=== PATIENT | female | born 1975 | race African-American/Black ===

== ENCOUNTER 2016-12-31 23:26 | Observation (INO) | payer BC, OTHER ==
[~2016-12-31] VITALS: Ht 175.3 cm; Wt 121.0 kg
[~2016-12-31 23:26] MED LIST: ASPI81CH3; BACT800T5 PO
[2016-12-31 23:30] VITALS: BP 148/71; RESP 16; TEMP 97.7; O2SAT 100
[2017-01-01 00:05] VITALS: BP 143/76; PULSE 76; RESP 16; TEMP 98.5; O2SAT 99
[2017-01-01 00:09] VITALS: BP 143/76; PULSE 72; RESP 16; O2SAT 99
[2017-01-01] MEDS ORDERED: SODIUM CHLORID 0.9% 500 ML INJ 500 ML IV ONE (00:15)
[2017-01-01] MEDS ORDERED: SODIUM CHLORIDE 0.9% FLUSH 5 ML FLUSH IVF PRN ×2 (00:15→02:15)
[2017-01-01] MEDS ORDERED: NITROGLYCERIN 0.4 MG SL 25 TABS/BTL SL ONE (00:15)
[2017-01-01] MEDS ORDERED: ASPIRIN 81 MG CHEW TAB PO ONE (00:15)
[2017-01-01 00:44] VITALS: BP 142/76; PULSE 72; RESP 16; O2SAT 99
--- NOTE | 2017-01-01 00:49 | PD ---
HPI Chief Complaint: Chest Pain Time Seen by Provider: 23:59 Travel History International Travel<30 days: No Contact w/Intl Traveler<30days: No Traveled to known affect area: No History of Present Illness HPI The patient is a 41 year old female who presents to the [facility] emergency department with a history of chest pain that began approximately 2-1/ 2 hours prior to arrival. The patient reports that she was waking up to go to work and noticed that she did not feel well and was nauseated. She then proceeded to have a chest pressure in the center and right side of her chest associated with shortness of breath and a sensation that she was wheezing. She denies any prior history of lung disease. She denies any history of smoking. She reports that she had diaphoresis associated with it. She denies having any vomiting. She denies having any radiation of pain. She denies any prior history of heart disease, hyperlipidemia, hypertension, or diabetes mellitus. She denies any significant family history of heart disease. The patient denies any recent fevers, cough, congestion, neck pain, abdominal pain, vomiting, diarrhea, urinary symptoms, or neurologic symptoms. [facility] Past Medical History Narrative Medical The patient's past medical history is significant for dysmenorrhea, status post endometrial ablation. Blood Disorders: No Cancer: No Cardiovascular Problems: No Diminished Hearing: No Gastrointestinal Disorders: No Tetanus Vaccination: < 5 Years ?: Not LMP: ABLATION : 3 Para: 3 Tubal Ligation: Yes (2010) Past Surgical History Narrative Surgical The patient's past surgical history is significant for 3 prior C-sections. Section: Yes Gynecologic Surgery: Yes ( x 3) Social History Alcohol Use: No Tobacco Use: No Substance Use: No Allergies-Medications (Allergen,Severity, Reaction): Coded Allergies: Vancomycin (Verified Allergy, Severe, Rash, 12/31/16) Reported Meds & Prescriptions Reported Meds & Active Scripts Active No Active Prescriptions or Reported Medications Review of Systems Except as stated in HPI: all other systems reviewed are Neg General / Constitutional: No: Fever Eyes: No: Visual changes HENT: No: Headaches Cardiovascular: Positive: Chest Pain or Discomfort, Diaphoresis, Dyspnea on exertion Respiratory: Positive: Shortness of Breath Gastrointestinal: Positive: Nausea, No: Abdominal Pain Genitourinary: No: Dysuria Musculoskeletal: No: Pain Skin: No Rash Neurologic: No: Weakness Psychiatric: No: Depression Endocrine: No: Polydipsia Hematologic/Lymphatic: No: Easy Bruising Physical Exam Narrative General: The patient is a well-developed well-nourished female in no acute distress. Head and Neck exam: Head is normocephalic atraumatic. Eyes: Pupils are equal round and reactive to light. Nose: Midline septum with pink mucous membranes Mouth: Dentition unremarkable. Moist mucus membranes. Posterior oropharynx is not erythematous. No tonsillar hypertrophy. Uvula midline. Airway patent. Neck: No palpable lymphadenopathy. No nuchal rigidity. No thyromegaly. Cardiovascular: Regular rate and rhythm without murmurs, gallops, or rubs. No pulse deficit to the extremities. Lungs: Clear to auscultation bilaterally. No wheezes, rhonchi, or rales. Abdomen: Soft, without tenderness to palpation in all 4 quadrants of the abdomen. No guarding, rebound, or rigidity. Normal bowel sounds are audible. No tenderness on palpation of McBurney's point. Negative Ruvalcaba's sign. Extremities: No clubbing, cyanosis, or edema. 2+ pulses in all 4 extremities. Back: No spinous process tenderness to palpation. Right-sided CVA tenderness on palpation. Neurologic Exam: Grossly nonfocal. Skin Exam: No rash noted. Intact skin that is warm and dry. Data Data Last Documented VS Vital Signs Date Time Temp Pulse Resp B/P Pulse Ox O2 Delivery O2 Flow Rate FiO2 01/01/17 02:00 16 01/01/17 00:44 72 142/76 99 Room Air 01/01/17 00:05 98.5 Orders Electrocardiogram (01/01/17 00:04) B-Type Natriuretic Peptide (01/01/17 00:04) Ckmb (Isoenzyme) Profile (01/01/17 00:04) Complete Blood Count With Diff (01/01/17 00:04) Comprehensive Metabolic Panel (01/01/17 00:04) D-Dimer (01/01/17 00:04) Magnesium (Mg) (01/01/17 00:04) Prothrombin Time / Inr (Pt) (01/01/17 00:04) Act Partial Throm Time (Ptt) (01/01/17 00:04) Troponin I (01/01/17 00:04) Lipase (01/01/17 00:04) Chest, Single Ap (01/01/17 00:04) Ecg Monitoring (01/01/17 00:04) Bilateral Bp Monitoring (01/01/17 00:04) Iv Access Insert/Monitor (01/01/17 00:04) Oximetry (01/01/17 00:04) Oxygen Administration (01/01/17 00:04) Aspirin Chew (Aspirin Chew) (01/01/17 00:15) Sodium Chloride 0.9% Flush (Ns Flush) (01/01/17 00:15) Nitroglycerin Sl (Nitrostat Sl) (01/01/17 00:15) Sodium Chlorid 0.9% 500 Ml Inj (Ns 500 M (01/01/17 00:15) Ed Urine Pregnancytest Poc (01/01/17 00:04) Urinalysis - C+S If Indicated (01/01/17 00:25) CKMB (01/01/17 00:20) CKMB% (01/01/17 00:20) Place In Observation (01/01/17 02:09) Activity Bed Rest With Brp (01/01/17 02:09) Vital Signs (Adult) Q4H (01/01/17 02:09) Cardiac Rhythm .As Directed (01/01/17 02:09) ^ Notify Dr: Other .PRN (01/01/17 02:09) ^ Notify DrAbdirizak Parameters (01/01/17 02:09) Resp Oxygen Nasal Cannula (01/01/17 ) Diet Npo (01/01/17 Breakfast) Ckmb (Isoenzyme) Profile (01/01/17 03:20) Ckmb (Isoenzyme) Profile (01/01/17 06:20) Troponin I (01/01/17 03:20) Troponin I (01/01/17 06:20) Electrocardiogram (01/01/17 03:20) Electrocardiogram (01/01/17 06:20) ^ Obtain (01/01/17 02:09) Sodium Chloride 0.9% Flush (Ns Flush) (01/01/17 02:15) Sodium Chloride 0.9% Flush (Ns Flush) (01/01/17 09:00) Acetaminophen (Tylenol) (01/01/17 02:15) Ondansetron Inj (Zofran Inj) (01/01/17 02:15) Pantoprazole (Protonix) (01/01/17 09:00) Missing Persons Investigator / Telemetry HEBER.Q8H (01/01/17 02:09) Admit Order (Ed Use Only) (01/01/17 02:09) CKMB (01/01/17 03:44) CKMB% (01/01/17 03:44) Labs Laboratory Tests Test 01/01/17 01/01/17 00:20 00:30 White Blood Count 6.1 TH/MM3 Red Blood Count 4.20 MIL/MM3 Hemoglobin 13.0 GM/DL Hematocrit 38.2 % Mean Corpuscular Volume 91.0 FL Mean Corpuscular Hemoglobin 30.9 PG Mean Corpuscular Hemoglobin 33.9 % Concent Red Cell Distribution Width 13.2 % Platelet Count 294 TH/MM3 Mean Platelet Volume 7.8 FL Neutrophils (%) (Auto) 41.4 % Lymphocytes (%) (Auto) 46.2 % Monocytes (%) (Auto) 8.6 % Eosinophils (%) (Auto) 3.3 % Basophils (%) (Auto) 0.5 % Neutrophils # (Auto) 2.5 TH/MM3 Lymphocytes # (Auto) 2.8 TH/MM3 Monocytes # (Auto) 0.5 TH/MM3 Eosinophils # (Auto) 0.2 TH/MM3 Basophils # (Auto) 0.0 TH/MM3 CBC Comment DIFF FINAL Differential Comment Prothrombin Time 10.6 SEC Prothromb Time International 1.0 RATIO Ratio Activated Partial 27.1 SEC Thromboplast Time D-Dimer Quantitative (PE/DVT) 0.38 MG/L FEU Sodium Level 141 MEQ/L Potassium Level 3.7 MEQ/L Chloride Level 107 MEQ/L Carbon Dioxide Level 24.1 MEQ/L Anion Gap 10 MEQ/L Blood Urea Nitrogen 12 MG/DL Creatinine 0.63 MG/DL Estimat Glomerular Filtration 125 ML/MIN Rate Random Glucose 78 MG/DL Calcium Level 8.4 MG/DL Magnesium Level 1.8 MG/DL Total Bilirubin 0.2 MG/DL Aspartate Amino Transf 20 U/L (AST/SGOT) Alanine Aminotransferase 29 U/L (ALT/SGPT) Alkaline Phosphatase 59 U/L Total Creatine Kinase 172 U/L Creatine Kinase MB 1.5 NG/ML Troponin I LESS THAN 0.02 NG/ML B-Type Natriuretic Peptide 39 PG/ML Total Protein 7.8 GM/DL Albumin 3.4 GM/DL Lipase 120 U/L Urine Color YELLOW Urine Turbidity CLEAR Urine pH 5.5 Urine Specific Hector 1.024 Urine Protein NEG mg/dL Urine Glucose (UA) NEG mg/dL Urine Ketones NEG mg/dL Urine Occult Blood NEG Urine Nitrite NEG Urine Bilirubin NEG Urine Urobilinogen 2.0 MG/DL Urine Leukocyte Esterase NEG Urine RBC 1 /hpf Urine WBC 1 /hpf Urine Squamous Epithelial 4 /hpf Cells Urine Mucus FEW /lpf Microscopic Urinalysis Comment CULT NOT INDICATED MDM Medical Decision Making Medical Screen Exam Complete: Yes Emergency Medical Condition: Yes Medical Record Reviewed: Yes Interpretation(s) Last Impressions Chest X-Ray 01/01/17 0004 Signed Impressions: Service Date/Time: Sunday, January 01, 2017 00:40 - CONCLUSION: No evidence of acute cardiopulmonary disease. Samir Contreras MD Differential Diagnosis Acute coronary syndrome, versus pneumonia, versus pyelonephritis, versus musculoskeletal strain, versus pulmonary embolism Narrative Course During the course of the patients emergency department visit, the patients history, examination, and differential diagnosis were reviewed with the patient. The patient had IV access obtained and blood work sent for analysis. The patient was placed on a rn cardiac rehab with oximetry and blood pressure monitoring. An EKG was done on arrival. The patient's EKG shows a normal sinus rhythm heart rate is 75, no acute ST segment elevation. No acute ST segment depression. The patient was provided aspirin 162 mg by mouth 1, nitroglycerin sublingual times one. The patients laboratory studies were reviewed and remarkable for a CBC that is unremarkable except for a lymphocytosis at 46.2, CMP is remarkable for a calcium of 8.4, initial set of cardiac enzymes are negative, BNP is 39, lipase 120, PT PTT unremarkable, d-dimer is 0.38 decreasing likelihood of pulmonary embolism in this patient with no other significant risk factors. Urinalysis is unremarkable. Radiology studies were reviewed and remarkable for a chest x-ray that shows no acute abnormality. The patients results were discussed with the patient, including the plan of care. I explained that further testing and/ or monitoring is indicated based on the patients history, examination, and/ or laboratory findings. Therefore, I recommended admission for additional evaluation. The patient expressed understanding and was agreeable with this plan. The patient was admitted to the hospital in stable condition and sent to a bed under the care of the chest pain center. Diagnosis Primary Impression: Chest pain, rule out acute myocardial infarction Admitting Information Admitting Physician Requests: Observation Scripts No Active Prescriptions or Reported Meds Sara Warner MD Jan 01, 2017 00:49
[2017-01-01 00:51] LABS: AUTOMATED NEUTROPHIL # 2.5 TH/MM3 (1.8-7.7); BASOPHIL % 0.5 % (0.0-2.0); EOSINOPHIL # 0.2 TH/MM3 (0-0.4); EOSINOPHIL % 3.3 % (0.0-4.0); HEMATOCRIT 38.2 % (35.0-46.0); HEMO FLAGS DIFF FINAL; LYMPH % 46.2 % (9.0-44.0); LYMPHOCYTE # 2.8 TH/MM3 (1.0-4.8); MEAN CORPUSCULAR HEMOGLOBIN 30.9 PG (27.0-34.0); MEAN CORPUSCULAR HGB CONC 33.9 % (32.0-36.0); MONO % 8.6 % (0.0-8.0); NEUT % 41.4 % (16.0-70.0); PLATELET COUNT 294 TH/MM3 (150-450); RED CELL DISTRIBUTION WIDTH 13.2 % (11.6-17.2); WHITE BLOOD COUNT 6.1 TH/MM3 (4.0-11.0)
[2017-01-01 01:07] LABS: APTT (PATIENT) 27.1 SEC (24.3-30.1); PROTHROMBIN TIME - PATIENT 10.6 SEC (9.8-11.6)
[2017-01-01 01:12] LABS: BLOOD, URINE NEG (NEG); COMMENT (UR) CULT NOT INDICATED; CULTURE IF INDICATED CULT NOT INDICATED; GLUCOSE,URINE NEG (NEG); KETONE, URINE NEG (NEG); MUCUS URINE FEW /lpf (OCC); NITRITE,URINE NEG (NEG); PH, URINE 5.5 (5.0-8.5); SQUAMOUS EPITHELIAL CELL URINE 4 /hpf (0-5); URINE COLOR YELLOW (YELLW/STRAW)
--- NOTE | 2017-01-01 01:29 | RADRPT ---
EXAM DATE/TIME: 01/01/2017 00:40 [facility] COMPARISON: No previous studies available for comparison. INDICATIONS : Chest pain. MEDICAL HISTORY : None. SURGICAL HISTORY : None. ENCOUNTER: Initial ACUITY: 1 day PAIN SCORE: 7/10 LOCATION: Bilateral chest FINDINGS: A single view of the chest demonstrates the lungs to be symmetrically aerated without evidence of mas s, infiltrate or effusion. The cardiomediastinal contours are unremarkable. Osseous structures are intact. CONCLUSION: No evidence of acute cardiopulmonary disease. Samir Contreras MD on January 01, 2017 at 1:26 Board Certified Radiologist. This report was verified electronically.
[2017-01-01 01:31] LABS: ALT (GPT) 29 U/L (10-53); ANION GAP 10 MEQ/L (5-15); AST (GOT) 20 U/L (15-37); BICARBONATE 24.1 MEQ/L (21.0-32.0); BLOOD UREA NITROGEN 12 MG/DL (7-18); CHLORIDE 107 MEQ/L (98-107); GLOMERULAR FILTRATION RATE 125 ML/MIN (>89); MAGNESIUM 1.8 MG/DL (1.5-2.5); POTASSIUM 3.7 MEQ/L (3.5-5.1); SODIUM (NA) 141 MEQ/L (136-145)
[2017-01-01 01:34] LABS: ALKALINE PHOSPHATASE 59 U/L (45-117); CREATINE KINASE 172 U/L (26-192); TOTAL BILIRUBIN ADULT 0.2 MG/DL (0.2-1.0)
[2017-01-01 01:46] LABS: CKMB 1.5 NG/ML (0.5-3.6)
[2017-01-01] MEDS ORDERED: ACETAMINOPHEN 500 MG CPLT PO PRN (02:15)
[2017-01-01] MEDS ORDERED: ONDANSETRON HCL 4 MG/2 ML VIAL IV PRN (02:15)
[2017-01-01 03:25] VITALS: O2SAT 98
[2017-01-01 04:15] LABS: CREATINE KINASE 182 U/L (26-192)
[2017-01-01 04:36] LABS: CKMB 1.2 NG/ML (0.5-3.6)
[2017-01-01 06:23] VITALS: BP 134/92; PULSE 75; RESP 16; O2SAT 96
[2017-01-01 07:05] LABS: CREATINE KINASE 138 U/L (26-192)
[2017-01-01 07:27] LABS: CKMB 1.2 NG/ML (0.5-3.6)
[2017-01-01 08:00] VITALS: BP 141/74; PULSE 77; RESP 18; TEMP 98.3; O2SAT 97
[2017-01-01] MEDS ORDERED: KETOROLAC TROMETHAMINE 30 MG/ML (IVP) VIAL IVP ONE (08:45)
[2017-01-01] MEDS ORDERED: SODIUM CHLORIDE 0.9% FLUSH 5 ML FLUSH IVF SCH (09:00)
[2017-01-01] MEDS ORDERED: PANTOPRAZOLE SOD 40 MG DELAYED RELEASE TAB PO SCH (09:00)
--- NOTE | 2017-01-01 09:29 | MH ---
cc: KANDY GASPAR MD DATE OF ADMISSION: 01/01/2017 DATE OF : 1975 CHIEF COMPLAINT Chest pain. HISTORY OF PRESENT ILLNESS This is a 41-year-old female who presented to the ED with a complaint of discomfort in the right side of her chest that awoke her from sleep at 8 o'clock last evening. She describes it as someone sitting on her. She states it is still there. It did hurt more when someone pressed on it in the ER. The discomfort is currently 7/10. She initially was a little short of breath. No inspirational chest pain. No nausea or diaphoresis. She never had anything like this before. She cannot recall anything that may have caused her discomfort. Denies . Cannot recall prior cardiac workup. PAST MEDICAL HISTORY Denies hypertension, hyperlipidemia, diabetes or CAD. FAMILY HISTORY Denies family history of CAD. SOCIAL HISTORY She is nonsmoker. Denies alcohol or illicit drugs. She has three children. PAST SURGICAL HISTORY . ALLERGIES VANCOMYCIN. MEDICATIONS Denies. REVIEW OF SYSTEMS GENERAL: Denies fevers or chills. Denies recent illnesses. HEENT: Denies headache, earache, sore throat, difficulty swallowing. CARDIOVASCULAR: Describes the discomfort as mentioned above. Denies diaphoresis. Denies sensation of heart beating rapidly or irregularly. Hospice Liaison syncope. RESPIRATORY: She was a little short of breath recently. Denies inspirational chest discomfort. Denies coughing, wheezing or hemoptysis. GASTROINTESTINAL: Denies nausea, vomiting, diarrhea, abdominal pain or blood in the stool. MUSCULOSKELETAL: Denies joint pain or edema. Denies calf pain or edema. NEUROVASCULAR: Denies headache or dizziness. ENDOCRINE: Denies polyuria or polydipsia. HEMATOLOGIC: Denies easy bruising. SKIN: Denies rash or itching. PHYSICAL EXAMINATION VITAL SIGNS: The vital signs in the emergency department initially included a blood pressure of 148/71, respiratory rate 16, pulse oximetry 100% on room air, and she was afebrile. The most recent vital signs include a blood pressure of 141/74, heart rate 77, respirations 18, pulse oximetry 97% on room air and she is afebrile. GENERAL: The patient is seen in the examination room in no apparent distress. She is very pleasant. She speaks in clear and complete sentences. The patient is obese at 121 kg. HEENT: Atraumatic, normocephalic. NECK: Supple without lymphadenopathy. Trachea is midline. No JVD or carotid bruits. CARDIOVASCULAR: Regular rate and rhythm without murmur, gallop or rub. PULMONARY: Lungs are clear to auscultation bilaterally. No wheezing, rales or rhonchi. No use of accessory muscles. There is a rather easily reproducible right-sided chest wall discomfort. This is worse than the symptoms she has been having. ABDOMEN: Nontender, nondistended. Bowel sounds are normal. No guarding or rebound. No obvious pulsatile mass or bruit. No CVA tenderness. Strong femoral pulses bilaterally. EXTREMITIES: The patient is moving upper and lower extremities freely. No joint tenderness or edema. No calf tenderness or edema. No Homans sign. Strong pulses in the upper and lower extremities. NEUROLOGIC: The patient is alert and oriented. Cranial nerves II through XII are grossly intact. No focal deficits. Speech is clear. SKIN: No rashes. Turgor is normal. LABORATORY DATA CBC is essentially unremarkable. Coagulation studies are unremarkable including D-dimer normal at 0.38. Complete metabolic panel is unremarkable. Serial cardiac enzymes are normal x3. BNP is normal at 39. Lipase is normal at 120. Urinalysis is unremarkable. Point of care urine test was negative. IMAGING DATA A single-view chest x-ray read by the radiologist as no evidence of acute cardiopulmonary disease. EKG DATA EKGs have sinus rhythm without significant ST segment depression or elevation. ASSESSMENT AND PLAN 1. Atypical chest pain: The patient has had serial cardiac enzymes and EKGs for ruling out purposes. She will be seen by Dr. Kandy Gaspar of cardiology in the chest pain center. Will give some IV Toradol to help with the discomfort in her chest wall. It is doubtful that she will need stress testing. She does not have risk factors and her discomfort is atypical; however, this will be determined after Dr. Gaspar evaluates the patient. She will need follow-up with a primary care physician. 2. The patient is stable at time. She is agreeable to this plan. Dictated by: Aly Sharma PA-C MD MACARIO Rome/CRYSTAL /8:41 AM /9:03 AM
[2017-01-01] MEDS ORDERED: REGADENOSON INJ 0.4 MG/5 ML SYR ONE (10:50)
--- NOTE | 2017-01-01 12:48 | RADRPT ---
EXAM DATE/TIME: 01/01/2017 10:23 [facility] COMPARISON: No previous studies available for comparison. INDICATIONS : Right sided chest pain with dyspnea. Angina. DOSE: 35 mCi Tc99m Myoview at stress. 11 mCi Tc99m Myoview at rest. 0.4 mg Lexiscan STRESS SYMPTOMS: Dyspnea and nausea. EJECTION FRACTION: 69% MEDICAL HISTORY : None SURGICAL HISTORY : Tubal ligation. section. ENCOUNTER: Initial ACUITY: 1 day PAIN SCALE: 5/10 LOCATION: Substernal chest TECHNIQUE: The patient underwent pharmacologic stress with infusion of prescribed dose. Continuous ECG tracing was monitored during stress. Gated SPECT imaging was performed after stress and conventional SPECT i maging was performed at rest. The examination was performed on a SPECT/CT scanner, both attenuation and non-corrected datasets were reviewed. FINDINGS: DISTRIBUTION: The maximum perfused segment at stress is in the lateral wall. PERFUSION STUDY: The pattern of perfusion at stress is within normal limits. GATED STUDY: There is intact wall motion and thickening without hypokinetic or dyskinetic segments. CONCLUSION: 1. No significant reversibility to suggest ischemia. 2. Normal wall motion with ejection fraction 69%. RISK CATEGORY: Low (<1% Annual Mortality Rate) hCris Rivers MD on January 01, 2017 at 12:42 Board Certified Radiologist. This report was verified electronically.
--- NOTE | 2017-01-01 13:03 | HHI.DCPOC ---
Discharge Care Plan Diagnosis: (1) Chest pain Goals to Promote Your Health * To prevent worsening of your condition and complications * To maintain your health at the optimal level Directions to Meet Your Goals Take your medications as prescribed Follow your dietary instruction Follow activity as directed Keep your appointments as scheduled Take your immunizations and boosters as scheduled If your symptoms worsen call your PCP, if no PCP go to Urgent Care Center or Emergency Room Smoking is Dangerous to Your Health. Avoid second hand smoke Call the 24-hour hour crisis hotline for domestic abuse at Aly Sharma Jan 01, 2017 13:03
--- NOTE | 2017-01-02 15:48 | EKG ---
Date Performed: 01/01/2017 Time Performed: 06:19:45 PTAGE: 41 years EKG: Sinus rhythm NORMAL ECG NO PREVIOUS TRACING DOCTOR: Sin Gaspar Interpretating Date/Time 01/02/2017 15:45:55
--- NOTE | 2017-01-02 15:49 | EKG ---
Date Performed: 01/01/2017 Time Performed: 03:20:24 PTAGE: 41 years EKG: Sinus rhythm NORMAL ECG PREVIOUS TRACING : 01/01/2017 00.01 Since previous tracing, no significant change noted DOCTOR: Sin Gaspar Interpretating Date/Time 01/02/2017 15:46:40
--- NOTE | 2017-01-02 15:50 | EKG ---
Date Performed: 01/01/2017 Time Performed: 00:01:57 PTAGE: 41 years EKG: Sinus rhythm NORMAL ECG PREVIOUS TRACING : 09/26/2010 19.14 DOCTOR: Sin Gaspar Interpretating Date/Time 01/02/2017 15:47:07
--- NOTE | 2017-01-02 16:09 | TR ---
Date Performed: 01/01/2017 Time Performed: 10:56:18 DOCTOR: Sin Gaspar DRUG LIST: CLINICAL HISTORY: REASON FOR TEST: Angina REASON FOR ENDING: OBSERVATION: CONCLUSION: Lexiscan stress test was performed under standard four minute protocol. Radionuclid e was injected one minute prior to ending the test. No electrocardiographic abormalities were present to suggest ischemia. Nuclear imaging and interpretation are pending. COMMENTS:
== END 2017-01-01 14:24 | disposition home or self-care (01) ==
LOC: NEPC 23:26 → NEDA 01-01 02:12 → NEDH 01-01 06:16 → NEPFCDU 01-01 12:26
PROVIDERS: ADMIT Internal Medicine Interventional Cardiology; ATTEND Internal Medicine Interventional Cardiology
DX: R07.9 Chest pain, unspecified (principal); R11.0 Nausea; R06.02 Shortness of breath; R06.2 Wheezing; R61 Generalized hyperhidrosis
CPT/HCPCS: 71010; 78452; 80053; 81001; 82550; 82552; 83690; 83735; 83880; 84484; 84703; 85025; 85379; 85610; 85730; 93005; 93017; 96360; 99285; A9502; G0378; J1885; J2785; J7040